=== PATIENT | male | born 1955 | race Caucasian/White ===

== ENCOUNTER 2021-02-08 12:21 | Outpatient (CLI) | payer MEDICARE, SELFPAY ==
[2021-02-08 12:58] LABS: Hemoglobin 11.3 g/dL (14.0-18.0); Mean Corpuscular HGB Conc 34.2 g/dl (32-36); Mean Corpuscular Volume 99.4 fl (80-100); Mean Platelet Volume 8.9 fl (7.4-10.4); Platelet Count Result 266 k/mm3 (150-375); Red Blood Count 3.32 M/mm3 (4.6-6.20); Red Cell Distribution Width 12.4 % (11.5-14.5); White Blood Count 4.5 K/mm3 (4.5-10.0)
[2021-02-08 13:05] LABS: Alanine Aminotransferase 21 U/L (4-50); Albumin Level 4.6 g/dL (3.5-5.1); Alkaline Phosphatase 92 U/L (38-126); Anion Gap 5 mmol/L (8-16); Aspartate Amino Transferase 29 U/L (17-59); Bilirubin,Total 0.5 mg/dL (0.2-1.3); Blood Urea Nitrogen 12 mg/dL (9-20); CRP < 0.5 mg/dL (<1.0); Calcium 9.3 mg/dL (8.4-10.2); Carbon Dioxide 27 mmol/L (22-30); Chloride 103 mmol/L (98-107); Estimated Glomerular Filt Rate > 60; Glucose 100 mg/dL (65-110); Potassium 4.4 mmol/L (3.4-5.0); Sodium 135 mmol/L (137-145)
[2021-02-08 15:28] LABS: Erythrocyte Sedimentation Rate 19 mm/hr (0-20)
== END 2021-02-08 12:22 | disposition home or self-care (01) ==
PROVIDERS: PCP Internal Medicine; Visit Provider Nurse Practitioner Family
DX: K51.90 Ulcerative colitis, unspecified, without complications (principal); K52.9 Noninfective gastroenteritis and colitis, unspecified
CPT/HCPCS: 36415; 80053; 85027; 85652; 86140; 87045; 87046; 87324; 87427

== ENCOUNTER 2021-05-09 01:11 | Day surgery (SDC) | payer MEDICARE, SELFPAY ==
[2021-04-22 11:15] VITALS: BMI 21.4
--- NOTE | 2021-04-25 14:37 | PC.NURSE ---
PT WAS INTERVIEWED BY Bobby TORO RN AND WAS GIVEN INSTRUCTIONS REGARDING A TELEPHONE AD TAKER AND TRANSPORTATION TO APPT. AND POST PROCEDURE. PT STILL INSISTED THAT HE WAS TAKING A MEDCAR AND WOULD NOT NEED ANYONE WITH HIM. HIS CHART WAS GIVEN TO ME AND I CALLED PT TO GO OVER THE REQUIREMENTS HERE AT [facility] REGARDING TRANSPORTATION HOME FROM PROCEDURE AFTER SEDATION. I WENT OVER THAT HE CAN TAKE A MED-CAR IF HE HAS SOMEONE ACCOMPANY HIM, THAT OUR POLICY IS THAT PATIENTS HAVE TO HAVE SOMEONE WITH THEM IN AN UBER, CAB, MED-CAR, BUS OR ANY OTHER PUBLIC TRANSPORTATION OR HAVE AN ACQUAINTANCE TRANSPORT THEM IN A PRIVATE VEHICLE. PT TRIED TO ARGUE THIS AND I EXPLAINED ONCE AGAIN THAT THIS IS THE POLICY OF [facility]. HE THEN STATED HE COULD NOT MEET THIS REQUIREMENT AND TO CANCEL HIS PROCEDURE. HIS PROCEDURE WAS CANCELED ON 04/24/2021, TODAY 04/25/21 THIS PATIENT CALLED BACK AND STATED HE WANTED HIS APPT. AND THAT HE WOULD BE TAKING THE MED-CAR AND A NEIGHBOR WOULD MAKE SURE HE WAS IN THE HOUSE. I AGAIN EXPLAINED TO THIS PATIENT THAT THE PERSON HAD TO ACCOMPANY HIM AND THAT MED-CAR WOULD ONLY DROP HIM OFF AND THEREFORE WE HAD TO HAVE SOMEONE TO RELEASE HIM TO THAT WAS HERE WITH HIM, HE STATED THAT NO ONE HAD TOLD HIM THAT, I AGAIN REITERATED THAT I TOLD HIM, Bobby TROO RN TOLD HIM AND THAT AMANDA IN DR. CARCAMO OFFICE TOLD HIM THIS. HE STATES HE WANTS TO KEEP HIS APPT AND WILL CALL ME WITH THE NAME OF WHO WILL BE HIS TELEPHONE AD TAKER. HE IS RESCHED. FOR 05/09/2021
--- NOTE | 2021-04-25 14:55 | PC.NURSE ---
I DID EXPLAIN TO PATIENT THAT IF HE COMES ON THE DAY OF HIS APPOINTMENT AND DOES NOT HAVE A QUALIFIED PYROTECHNICIAN ACCORDING TO OUR POLICY HE WILL BE CANCELED.
[2021-05-09 11:12] VITALS: BP 134/62; PULSE 80; RESP 16; TEMP 36.2; O2SAT 99; BMI 19.2
[2021-05-09] MEDS: LACTATED RINGERS 1,000 ML 150 ML IV CONT (11:27)
--- NOTE | 2021-05-09 11:37 | P.PNAN_ITS ---
Anes - Initial Pre Proc Eval Procedure: Operation Date: 05/09/21 12:30 Proposed Procedures p Colonoscopy - Jovon Fontanez MD Date/Time: 05/09/21 11:37 Surgeon: Jovon Fontanez MD Pre Op Diagnosis: ulcerative colitis Patient Data Age: 65 Gender: M Height: 1.78 m Weight: 60.8 kg Last Vital Signs Temp 36.2 C L 05/09/21 11:12 Pulse 80 05/09/21 11:12 Resp 16 05/09/21 11:12 BP 134/62 05/09/21 11:12 Pulse Ox 99 05/09/21 11:12 Allergies Allergy/AdvReac Type Severity Reaction Status Date / Time No Known Allergies Allergy Verified 05/09/21 11:09 Home Medications Medication Instructions Recorded Confirmed Type aspirin 81 mg tablet,delayed 81 mg PO DAILY 02/08/21 04/22/21 History release cilostazol 100 mg tablet 100 mg PO BID 02/08/21 04/22/21 History multivitamin 1 tablet PO DAILY 02/08/21 04/22/21 History Patient hx anesthesia problems: none Family hx anesthesia problems: none Results Review: All pre-operative results and documents have been reviewed as part of the pre-operative evaluation. [facility] Past Medical History Medical History Tobacco abuse Ulcerative colitis Social History Social History Social History: 1.5 PPD x 40+ years, 3-5 beers/day Smoking packs per day: 1 Smoking cigarettes per day: 20.0 Years smoked: 48 Smoking pack-years: 48.00 Smoking status: Current every day smoker Alcohol intake: current Drinks per week: 10 Living arrangements: alone Spiritual care concerns: No Anes - Eval Final PreProcedure Day of Procedure 05/09/21 11:37 Patient weight: normal Heart: regular rate and rhythm Lungs: clear to auscultation and normal air movement Airway: Mallampati scale class II Neurological: alert and oriented Last oral intake: >/= 8 hours ASA classification: III Emergent: no Anesthetic plan: proceed Anesthesia type and monitoring: general GIVS Results Review: All pre-operative results and documents have been reviewed as part of the pre-operative evaluation. Informed Consent: The patient's anesthetic plan and its attendant risks and benefits were discussed with the patient/family/POA. Questions were solicited and answers provided to the satisfaction of the patient/family/POA.
--- NOTE | 2021-05-09 12:06 | WPDGICN ---
Assessment and Plan Assessment and plan (1) Abnormal CT scan: Code(s): R93.89 - Abnormal findings on diagnostic imaging of other specified body structures Status: Acute Assessment and Plan: Patient with recent CT scan not immediately available for review, apparently suggest possible mass in the colon plan to evaluate with surveillance colonoscopy at this time. (2) Ulcerative colitis: Code(s): K51.90 - Ulcerative colitis, unspecified, without complications Status: Acute Assessment and Plan: Patient with a history of ulcerative colitis. Patient has self-medicated change his medication from Lialda brand of mesalamine to sulfasalazine. Currently 500mg tablets 8 a day. He has been altering the dose of this medication based on his symptoms and this may need to be adjusted. Plan is for colonoscopy to assess more thoroughly. Should he remain on sulfasalazine he will need folic acid added to his medical regime. GI Consult Note Consult date/time: 05/09/21 12:06 HPI: Bharat Hays is a 65 year old male Presents for screening colonoscopy. Patient has a history of ulcerative colitis. He has been on Lialda brand of mesalamine but began to notice diarrhea on this and in April change the medicine back to his previous medications of sulfasalazine. He states that he gradually increase the dose of the medicine so that he takes 500mg 8 tablets p.o. daily. He states more than that would cause stomach distress. He states his stools previously were diarrhea while on Lialda these have become more formed and brown in appearance recently. He still has control issues per he denies any significant bleeding. Denies any significant abdominal pain. He apparently was seen at [facility] in [place] and a CT scan was performed raising the question of a mass in the colon. For this reason he presents for colonoscopy today. Patient states he does not remember why he went to the emergency room her white of the CT scan was performed. Patient apparently had a previous colonoscopy several years ago confirming his ulcerative colitis. His family history is noncontributory. Review of Systems Review of Systems: All systems reviewed & are unremarkable except as noted in HPI and below PMFSH Past Medical History Medical History Tobacco abuse Ulcerative colitis Social History Social History Social History: 1.5 PPD x 40+ years, 3-5 beers/day Smoking packs per day: 1 Smoking cigarettes per day: 20.0 Years smoked: 48 Smoking pack-years: 48.00 Smoking status: Current every day smoker Alcohol intake: current Drinks per week: 10 Living arrangements: alone Spiritual care concerns: No Meds Home Medications and Allergies Home Medications Medication Instructions Recorded Confirmed Type aspirin 81 mg tablet,delayed 81 mg PO DAILY 02/08/21 04/22/21 History release cilostazol 100 mg tablet 100 mg PO BID 02/08/21 04/22/21 History multivitamin 1 tablet PO DAILY 02/08/21 04/22/21 History Allergies Allergy/AdvReac Type Severity Reaction Status Date / Time No Known Allergies Allergy Verified 05/09/21 11:09 Vital Signs Vital Signs - 24 hr 05/09/21 11:12 Temperature 97.1 F L Pulse Rate 80 Respiratory Rate 16 Blood Pressure 134/62 Pulse Oximetry 99 Exam Narrative: Physical exam reveals patient to be alert. Vital signs stable. HEENT exam is unremarkable. Patient is anicteric. Lungs are clear to auscultation and percussion. Heart is without murmur or extra sounds. Abdominal exam bowel sounds are present soft nontender with no organomegaly. Digital external rectal exam normal.
[2021-05-09 13:32] VITALS: BP 111/62; PULSE 70; RESP 22; O2SAT 93
[2021-05-09 13:42] VITALS: BP 125/74; PULSE 66; RESP 20; O2SAT 100
--- NOTE | 2021-05-09 13:44 | SUR.PHASEII ---
Provided Dr. Antoine office number.
[2021-05-09 13:52] VITALS: BP 147/78; PULSE 68; RESP 16; O2SAT 100
== END 2021-05-09 14:20 | disposition home or self-care (01) ==
PROVIDERS: PCP Internal Medicine; Visit Provider Internal Medicine Gastroenterology
PROC: 0DJD8ZZ Inspection of Lower Intestinal Tract, Via Natural or Artificial Opening Endoscopic (ICD-10-PCS; CPT 45378; principal; 2021-05-09 12:30)
DX: K63.89 Other specified diseases of intestine (principal); K64.8 Other hemorrhoids; Z98.0 Intestinal bypass and anastomosis status; Z90.49 Acquired absence of other specified parts of digestive tract; Z87.19 Personal history of other diseases of the digestive system; F17.210 Nicotine dependence, cigarettes, uncomplicated; Z79.82 Long term (current) use of aspirin
CPT/HCPCS: 45380; 88305; J2704; J7120

== ENCOUNTER 2024-01-21 07:00 | Outpatient (NON) | payer MEDICARE, SELFPAY | END 2024-01-21 07:01 | disposition home or self-care (01) | LOC: ANHLAB 01-22 09:51 | PROVIDERS: PCP Internal Medicine; Visit Provider Internal Medicine Gastroenterology | DX: K52.9 Noninfective gastroenteritis and colitis, unspecified (principal); D12.0 Benign neoplasm of cecum; D12.2 Benign neoplasm of ascending colon; D12.8 Benign neoplasm of rectum | CPT/HCPCS: 88305 ==

== ENCOUNTER 2024-01-21 08:32 | Day surgery (SDC) | payer MEDICARE, SELFPAY ==
[2023-12-16 14:12] VITALS: BMI 20.5
[2024-01-13 14:58] VITALS: BMI 20.2
[2024-01-21 10:58] VITALS: BP 134/73; PULSE 71; RESP 17; TEMP 36.6; O2SAT 99; BMI 19.1
--- NOTE | 2024-01-21 10:58 | WPDANESEPPF ---
Anes - Initial Pre Proc Eval Procedure: Operation Date: 01/21/24 11:30 Proposed Procedures p Colonoscopy - Jovon Fontanez MD Date/Time: 01/21/24 10:58 Surgeon: Jovon Fontanez MD Pre Op Diagnosis: Ulcerative colitis,unspec. Other specified disease Patient Data Age: 68 Gender: M Height: 1.78 m Weight: 63.8 kg Allergies Allergy/AdvReac Type Severity Reaction Status Date / Time No Known Allergies Allergy Verified 01/21/24 10:51 Home Medications Medication Instructions Recorded Confirmed Type cilostazol 100 mg tablet 100 mg PO BID 02/08/21 01/21/24 History multivitamin 1 tablet PO DAILY 02/08/21 01/21/24 History folic acid 1 mg tablet 1 mg PO DAILY 1 month #30 tabs 11/26/23 01/21/24 Rx atorvastatin 10 mg tablet 10 mg PO DAILY 01/13/24 01/21/24 History clopidogrel 75 mg tablet 75 mg PO DAILY 01/13/24 01/21/24 History sulfasalazine 500 mg tablet 2,000 mg PO DAILY 01/13/24 01/21/24 History Patient hx anesthesia problems: none Family hx anesthesia problems: none Results Review: All pre-operative results and documents have been reviewed as part of the pre-operative evaluation. [facility] Past Medical History Medical History Tobacco abuse Ulcerative colitis Surgical History Surgical History History of colon resection Social History Social History Social History: 1.5 PPD x 40+ years, 3-5 beers/day Smoking packs per day: 1 Smoking cigarettes per day: 20.0 Years smoked: 50 Smoking pack-years: 50.00 Smoking status: Current every day smoker Tobacco type: cigarettes Alcohol intake: current Drinks per week: 21 Alcohol use details: beer Substance use type: does not use Living arrangements: alone Spiritual care concerns: No Anes - Eval Final PreProcedure Day of Procedure 01/21/24 10:58 Patient weight: normal Heart: regular rate and rhythm Lungs: clear to auscultation Airway: Mallampati scale class II Neurological: alert and oriented Last oral intake: >/= 8 hours ASA classification: III Emergent: no Anesthetic plan: proceed Anesthesia type and monitoring: general GIVS and standard monitoring Results Review: All pre-operative results and documents have been reviewed as part of the pre-operative evaluation. Informed Consent: The patient's anesthetic plan and its attendant risks and benefits were discussed with the patient/family/POA. Questions were solicited and answers provided to the satisfaction of the patient/family/POA.
--- NOTE | 2024-01-21 11:13 | PM.HPGS ---
History of Present Illness History of Present Illness Consent: Risks, benefits, and alternatives have been discussed and questions answered. Patient agrees to proceed with procedure. Chief complaint: Ulcerative colitis Narrative: Bharat Hays is a 68 year old male presents for colonoscopy. Patient diagnosed with ulcerative colitis 6 or so years ago. Patient has a distant history of sigmoid colon resection for diverticulitis. Patient has had CT scans which revealed thickening of the descending colon and sigmoid colon. Colonoscopy performed in 2018 & 2020 confirmed diagnosis of ulcerative colitis. Patient initially treated with Lialda but was intolerant of this medication. He subsequently was placed on sulfasalazine. He was prescribed 1g p.o. b.i.d. but is only recently taken one gram p.o. q.a.m.. Patient states symptoms are well controlled. He no longer has diarrhea. He denies bleeding. His weight has remained stable. He has no blood in his stools. When last seen and evaluated his sigmoid colon was felt to be quite edematous. Biopsies were negative for malignancy. Surgical resection was discussed but patient has not pursued this. He presents today for follow-up colonoscopy. Review of Systems Review of Systems: All systems reviewed & are unremarkable except as noted in HPI and below PMFSH Past Medical History Medical History Tobacco abuse Ulcerative colitis Surgical History Surgical History History of colon resection Social History Social History Social History: 1.5 PPD x 40+ years, 3-5 beers/day Smoking packs per day: 1 Smoking cigarettes per day: 20.0 Years smoked: 50 Smoking pack-years: 50.00 Smoking status: Current every day smoker Tobacco type: cigarettes Alcohol intake: current Drinks per week: 21 Alcohol use details: beer Substance use type: does not use Living arrangements: alone Spiritual care concerns: No Meds Home Medications and Allergies Home Medications Medication Instructions Recorded Confirmed Type cilostazol 100 mg tablet 100 mg PO BID 02/08/21 01/21/24 History multivitamin 1 tablet PO DAILY 02/08/21 01/21/24 History folic acid 1 mg tablet 1 mg PO DAILY 1 month #30 tabs 11/26/23 01/21/24 Rx atorvastatin 10 mg tablet 10 mg PO DAILY 01/13/24 01/21/24 History clopidogrel 75 mg tablet 75 mg PO DAILY 01/13/24 01/21/24 History sulfasalazine 500 mg tablet 2,000 mg PO DAILY 01/13/24 01/21/24 History Allergies Allergy/AdvReac Type Severity Reaction Status Date / Time No Known Allergies Allergy Verified 01/21/24 10:51 Vital Signs Vital Signs - 24 hr 01/21/24 10:58 Temperature 97.8 F Pulse Rate 71 Respiratory Rate 17 Blood Pressure 134/73 Pulse Oximetry 99 Oxygen Delivery Room Air Exam Narrative: Physical exam reveals patient to be alert. Vital signs stable. HEENT exam is unremarkable. Patient is anicteric. Lungs are clear to auscultation and to percussion. Heart is without murmur or extra sounds. Abdomen bowel sounds are present soft nontender with no organomegaly. Digital external rectal exam normal. Assessment and Plan Assessment and plan (1) Ulcerative colitis: Code(s): K51.90 - Ulcerative colitis, unspecified, without complications Status: Acute Assessment and Plan: Patient with ulcerative colitis. Appears to be in clinical remission. He has a history of abnormal CT scan suggesting thickening in the sigmoid colon. Previous biopsies were unremarkable. Follow-up colonoscopy at this time. Patient taking sulfasalazine 1g p.o. daily. Further recommendations may be given after endoscopy. (2) History of colon resection: Code(s): Z90.49 - Acquired absence of other specified parts of digestive tract Status: Acute Assessment and Plan:
[2024-01-21] MEDS: LACTATED RINGERS 1,000 ML 150 ML IV CONT (11:19)
[2024-01-21 11:55] VITALS: BP 105/45; PULSE 75; RESP 16; O2SAT 98
--- NOTE | 2024-01-21 12:03 | WPDANESPN ---
Anes - Prog Note Post-Op Date/Time: 01/21/24 12:03 Cardiovascular status: normal Respiratory status: normal Airway patency: baseline Mental status: baseline Post-Op hydration status: normal Vital Signs: Last Vital Signs Temp 36.6 C 01/21/24 10:58 Pulse 71 01/21/24 10:58 Resp 17 01/21/24 10:58 BP 134/73 01/21/24 10:58 Pulse Ox 99 01/21/24 10:58 O2 Del Method Room Air 01/21/24 10:58 Pain Score (VAS): 0/10 I/O: Intake & Output 01/20/24 01/21/24 01/21/24 23:59 07:59 15:59 Intake Total 800 Balance 800 Patient Feedback: Patient satisfied with anesthetic care.
[2024-01-21 12:05] VITALS: BP 109/47; PULSE 72; RESP 18; O2SAT 97
[2024-01-21 12:15] VITALS: BP 123/63; PULSE 64; RESP 20; O2SAT 99
--- NOTE | 2024-01-21 13:00 | SUR.PHASEII ---
[address] CANDELARIA TO ASK WHEN PATIENT CAN START BACK ON HIS BLOOD THINNERS. STATED TO HAVE PT RESUME ON 01/23/2024. PT INSTRUCTED AND WRITTEN ON D/C ORDERS TO RESUME CILOSTAZOL AND CLOPIDOGREL ON 01/23/2024. PT VERBALIZED UNDERSTANDING.
--- NOTE | 2024-01-21 13:04 | SUR.PHASEII ---
1240 PT SITTING UP IN CHAIR WAITING FOR JEWEL RIDE
== END 2024-01-21 13:00 | disposition home or self-care (01) ==
PROVIDERS: PCP Internal Medicine; Visit Provider Internal Medicine Gastroenterology
PROC: 0DJD8ZZ Inspection of Lower Intestinal Tract, Via Natural or Artificial Opening Endoscopic (ICD-10-PCS; CPT 45378; principal; 2024-01-21 11:30)
DX: Z87.19 Personal history of other diseases of the digestive system (principal); D12.0 Benign neoplasm of cecum; D12.2 Benign neoplasm of ascending colon; D12.8 Benign neoplasm of rectum; K63.89 Other specified diseases of intestine; K64.8 Other hemorrhoids; K51.30 Ulcerative (chronic) rectosigmoiditis without complications
CPT/HCPCS: 45385; 45380

== ENCOUNTER 2025-02-23 15:46 | Outpatient (CLI) | payer MEDICARE, SELFPAY ==
--- OUTSIDE RECORDS SUMMARY | 2025-02-23 15:00 | XMS_ITS | Encounter Summary ---
Author Organization [facility] Address [address] [place] [address] Care Team Providers Care Assembler Molded Frames Name Role Phone Adeil Cabrales MD Primary Care Provider Reason for Visit * Reason Comments Establish Care Encounter Details Date Type Department Care Team (Late st Contact Info) Description 02/23/2025 3:00 PM CDT Office Visit [facility] Oncology and Hematology - Gen [address] [facility] [address] [place] [address] Cuong Hobson MD [address] [facility] [address] [place] [address] Chronic anemia (Primary Dx) Social History Tobacco Use Types Packs/Day Years Used Date Smoking Tobacco: Every Day Cigarettes 2 56 Started: 02/23/1969 Smokeless Tobacco: Never Alcohol Use Standard Drinks/Week Comments Yes 0 (1 standard drink = 0.6 oz pur e alcohol) Everyday Sex and Gender Information Value Date Recorded Sex Assigned at Not on file Legal Sex Male 9:31 AM CDT Gender Identity Not on file Sexual Orientation Not on file documented as of this encounter Last Filed Vital Signs Vital Sign Reading Time Taken Comments Blood Pressure 114/70 02/23/2025 3:07 PM CDT Pulse 67 02/23/2025 3:07 PM CDT Temperature 36.9 C (98.5 F) 02/23/2025 3:07 PM CDT Respiratory Rate 15 02/23/2025 3:07 PM CDT Oxygen Saturation 97% 02/23/2025 3:07 PM CDT Inhaled Oxygen Concentration - - Weight 60.5 kg (133 lb 6.4 oz) 02/23/2025 3:07 P M CDT Height 175.3 cm (5' 9) 02/23/2025 3:07 PM CDT Body Mass Index 19.7 02/23/2025 3:07 PM CDT documented in this encounter Progress Notes * Cuong Hobson MD - 02/23/2025 3:44 PM CDT Hematology-oncology consult Note Requesting Physician Adiel Cabrales MD Primary Care Physician Adiel Cabrales MD Problem list There is no problem list on file for this patient. Previous TREATMENT ? Measurable Disease ? Reason for Visit Bharat Hays is a 69 y.o. male who was referred for consultation for macrocytic anemia. History of present illness This is a pleasant 69-year-old male with history of peripheral vascular disease currentlyon Pletal and Plavix along with Lipitor for hyperlipidemia. Patient has a history of smoking half pack per day for more than 50 years duration. He also drink alcohol 1-2 beers a day but used to drink heavier more than 10 years ago. Patient has a history of small bowel obstruction and had intestinalresection done in 2014. He denies being a vegetarian. Patient has a history of nosebleed but now resolved. Her last colonoscopy was in summer of last year and came back normal. He is taking multivitamin. Denies any history of liver disease and thyroid disease. He only eats 1 meal a day since his int estinal resection 10 years ago. He has lost almost 25 pound weight in 1 year. Labs from August 2024 showed hemoglobin of 10.6 with MCV of 108. He has no other new complaints. Past Medical History No past medical history on file. Hyperlipidemia Peripheral vascular disease Surgical History No past surgical history on file. Intestinal resection for small bowel obstruction in 2014 Medications Current Outpatient Medications Medication Sig Dispense Refill cilostazoL (PLETAL) 100 mg Tablet Take 100 mg by mouth 2 times daily. clopidogreL (PLAVIX) 75 mg Tablet Take 75 mg by mouth daily. atorvastatin (LIPITOR) 10 mg tablet Take 10 mg by mouth daily. multivitamin (DAILY-TOOTIE) tablet Take 1 Tablet by mouth daily. No current facility-administered medications for this visit. Allergies No Known Allergies Immunizations: There is no immunization history on file for this patient. Family History Family History Problem Relation Name Age of Onset No Known Problems Father No Known Problems Mother No Known Problems Sister Social History Social History Tobacco Use Smoking status: Every Day Current packs/day: 0.50 Average packs/day: 2.0 packs/day for 56.0 years (110.5 ttl pk-yrs) Types: Cigarettes Start date: 02/23/1969 Smokeless tobacco: Never Substance Use Topics Alcohol use: Yes Comment: Everyday Review of Systems Constitutional: Patient did not mention fever; no night sweats; no anorexia;complain of mild tiredness and fatigue, 25 pound weight loss in 10 years NEENT: Patient did not mention headache; no change in vision; no change in hearing; no sore throat;no dysphagia Respiratory: Patient did not mention shortness of breath; no pleuritic chest pain; no cough; no hemoptysis Cardiac: Patient did not mention cardiac-like chest pain; no palpitations; no orthopnea; no PND; noDOE GI: Patient did not mention abdominal pain; no nausea; no vomiting; no diarrhea; no hematochezia; no melena : Patient did not mention dysuria; no frequency; no hesitancy; no hematuria 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 No signs of infection or swelling. Eyes: PERRL, conjunctiva normal HEENT: Atraumatic, external ears normal, nose normal, oropharynx moist, no pharyngeal exudates. no sinus tenderness Neck- normal range of motion, no tenderness, supple Respiratory: No respiratory distress, normal breath sounds, no rales, no wheezing Cardiovascular: Normal rate, normal rhythm, no murmurs, no gallops, no rubs GI: Soft, nondistended, normal bowel sounds, nontender, no splenomegaly, no hepatomegaly, no mass, no rebound, no guarding : No costovertebral angle tenderness Musculoskeletal: No edema, no tenderness, no deformities. Back- no tenderness Integument: Well hydrated, no rash, Digits and nails inspection normal Lymphatic: No lymphadenopathy noted Neurologic: Alert & oriented x 3, CN 2-12 normal, normal motor function, normal sensory function, no focal deficits noted Psychiatric: Speech and behavior appropriate ? labs No results found for this or any previous visit (from the past 24 hours). Labs from August 2024 showed WBC 5.2 hemoglobin 10.6 MCV 108 platelet 279,000 Pathology ? Imaging & Other Studies Performance Status? Assessment / Plan: ? Macrocytic anemia. Patient is a 69-year-old male with history of hyperlipidemia, intestinal resection due to obstruction in 2014 and peripheral vascular disease currently on Plavix and Flagyl. He drinks 1-2 beer a day but used to drink heavily more than 10 years ago. He also smoked half pack per day for more than 50 years duration. He eats only 1 meal a day since the intestinal surgery and lost more than 25 pound weight. His last colonoscopy was last summer. I have discussed the differential diagnosis of macrocytic anemia that includes liver disease. Due to alcohol consumption, malnutrition with previous intestinal surgery with vitamin B12 and folic acid deficiency, thyroid disorder and possibility of bone marrow disorder like myelodysplastic syndrome. I will order the workup that will include CBC with differential, CMP, methylmalonic acid level, vitamin B12 and folic acid level iron studies and CBC will along with CMP. No need for bone marrow biopsy testing at this time. I have recommended abstinence from drinking. Currently is taking multivitamin. I have answered all thequestions to patient satisfaction. Follow-up in 2 weeks. Peripheral vascular disease. Patient is on Plavix and Pletal. Denies any bleeding. Hyperlipidemia. He is on Lipitor. Thank you very much for allowing me to participate in Bharat Hays's evaluation and management. Please feel free to contact if I can be of any further assistance in your patient???s care requiring hematology or oncology evaluation. Sincerely, ? ? Cuong Hobson M.D. cell TOBACCO COUNSELING He is not a tobacco/nicotine user. Cuong Hobson MD ,02/23/2025 3:44 PM ? Total time spent 60 minutes, two third of the total time spent counseling patient [id number]. CC:?Adiel Cabrales MD documented in this encounter Plan of Treatment Upcoming Encounters Date Type Department Care Team (Late st Contact Info) Description 03/21/2025 11:45 AM CDT Office Visit [facility] Oncology and Hematology - Gen [address] [facility] [address] [place] [address] Cuong Hobson MD [address] [facility] [address] [place] [address] Scheduled Orders Name Type Priority Associated Diagnoses Orde r Schedule CBC WITH DIFFERENTIAL Lab Stat Chronic anemia Expected: 02/23/2025, Expires: 02/23/2026 COMPREHENSIVE METABOLIC PANEL Lab Stat Chronic anemia Expected: 02/23/2025, Expires: 02/23/2026 FERRITIN Lab Routine Chronic anemia Expected: 02/23/2025, Expires: 02/23/2026 IRON, TIBC, AND PERCENT SATURATION Lab Routine Chronic anemia Expected: 02/23/2025, Expires: 02/23/2026 METHYLMALONIC ACID Lab Routine Chronic anemia Expected: 02/23/2025, Expires: 02/23/2026 TRANSFERRIN RECEPTOR TFR SOLUBLE Lab Routine Chronic anemia Expected: 02/23/2025, Expires: 02/23/2026 TSH Lab Routine Chronic anemia Expected: 02/23/2025, Expires: 02/23/2026 VITAMIN B12 AND FOLATE Lab Routine Chronic anemia Expected: 02/23/2025, Expires: 02/23/2026 documented as of this encounter Visit Diagnoses Diagnosis Chronic anemia- Primary Anemia, unspecified documented in this encounter Care Teams Assembler Molded Frames Relationship Specialty Start Date End Date Adiel Cabrales MD [address] [place] [address] PCP - General Internal Medicine 12/14/24 documented as of this encounter
--- OUTSIDE RECORDS SUMMARY | 2025-02-23 15:51 | XMS_ITS | Clinical Summary ---
Author Organization [facility] Nicole oconnell Carmela Address [address] [place] [address] Care Team Providers Care Architectural Administrative Assistant Name Role Phone Adiel Cabrales MD Primary Care Provider [phone] Allergies No known active allergies Medications cilostazoL (PLETAL) 100 mg Tablet Take 100 mg by mouth 2 times daily. 07/12/2024 Active clopidogreL (PLAVIX) 75 mg Tablet Take 75 mg by mouth daily. 07/12/2024 Active atorvastatin (LIPITOR) 10 mg tablet Take 10 mg by mouth daily. 02/23/2023 Active multivitamin (DAILY-TOOTIE) tablet Take 1 Tablet by mouth daily. Active Active Problems No known active problems Encounters Date Type Department Care Team Description 02/23/2025 3:00 PM CDT Office Visit [facility] Oncology and Hematology - Gen [address] [address] Coung Hobson MD Chronic anemia (Primary Dx) from Last 3 Months Family History Medical History Relation Name Comments No Known Problems Father No Known Problems Mother No Known Problems Sister Relation Name Status Comments Father Mother Sister Alive Social History Tobacco Use Types Packs/Day Years [...] on file Sexual Orientation Not on file Last Filed Vital Signs Vital Sign Reading [...] Mass Index 19.7 02/23/2025 3:07 PM CDT Plan of Treatment Upcoming Encounters Date Type Department Care Team (Late st Contact Info) Description 03/21/2025 11:45 AM CDT Office Visit [facility] Oncology and Hematology [facility] [address] [facility] [address] [place] [address] Cuong Hobson MD [address] [facility] [employer] [address] [place] [address] Health Maintenance Due Date Last Done Comments DTAP/TDAP/TD VACCINES (1 - Tdap) 1972 Traditional Medicare (ACO) Annual Wellness Visit 05/30 FIT-DNA Q 3 years 1998 FIT/FOBT Q 1 year 1998 Flex Sig/CT Colonography Q 5 years 1998 PNEUMOCOCCAL VACCINE 50+ YEARS (1 of 1 - PCV) 05/30/20 03 ZOSTER VACCINE (1 of 2) 2003 INFLUENZA VACCINE (#1) 2025 04/09/2020 RSV VACCINE (60+ or ) (1 - 1-dose 75+ series) 2028 COLORECTAL SCREENING 05/09/2031 05/09/2021 Colorectal Cancer Screening 05/09/2031 Insurance MEDICARE PART A AND B [employer] SUPP Care Teams Architectural Administrative Assistant Relationship Specialty Start Date End Date Adiel aCbrales MD [address] [place] [id number] PCP - General Internal Medicine 12/14/24
--- OUTSIDE RECORDS SUMMARY | 2025-02-23 15:51 | XMS_ITS | Clinical Summary ---
Author Organization [facility] Address [address] [place] [address] Care Team Providers Care Process Development Manager Name Role Phone Adiel Cabrales MD Primary Care Provider [phone] Aris Terry MD Unavailable [phone] Allergies No known active allergies Medications traMADol (ULTRAM) 50 mg tablet take 1 tablet by oral route every 6 hours as needed 0 0 5 Active mesalamine (LIALDA) 1.2 gram EC tablet 1 Active aspirin 81 mg enteric coated tablet Take 1 tablet (81 mg total) by mouth daily Active sulfaSALAzine (AZULFIDINE) 500 mg tablet Take 1 tablet (500 mg total) by mouth 4 (four) times a day Active multivitamin capsule Take 1 capsule by mouth daily Active HYDROcodone-sweta taminophen ([place]) 5-325 mg per tablet Take 1 tablet by mouth every 4 (four) hours as needed for pain 5 tablet 3 Active Additional Information Patient not taking.Reported on 2024 senna-docusate (PERICOLACE) 8.6-50 mg Take 2 tablets by mouth daily 30 tablet 3 Active atorvastatin (LIPITOR) 10 mg tablet Take 1 tablet (10 mg total) by mouth daily 3 Active cilostazoL (PLETAL) 100 mg tablet TAKE 1 TABLET(100 MG) BY MOUTH TWICE DAILY 180 tablet 3 5 Active clopidogreL (PLAVIX) 75 mg tablet TAKE 1 TABLET(75 MG) BY MOUTH DAILY 90 tablet 3 5 Active Active Problems Problem Noted Date Diagnosed Date Diverticulitis 12/10/2022 Assessment & Plan (12/10/2022 9:25 AM CDT): Hx of diverticulitis c/b abscess now s/p ex lap sigmoid resection and jejunum 06/2015 -cont home mesalamine & sulfasalazine PAD (peripheral artery disease) 12/10/2022 Atherosclerosis of kashia ar leroy of both lower extremities with intermittent claudication 11/17/2022 Assessment & Plan (12/10/2022 1:30 PM CDT): Patient with BLE atherosclerosis and claudication. He has been managed conservatively in the past and now reports worsening of claudication distance affecting both lower extremities. His NING from 10/30/2022 showed 0.77 on the right side and 0.63 on the left side with monophasic waveforms in inflow on the right side and high- grade stenosis of proximal right SFA. He is on aspirin and Pletal. He presents for scheduled RLE angio -> R EIA stent and R SFA atherectomy + DCB, Admitted for 23hour obs - Plavix load + aspirin + Pletal - Q4 NV checks - ADAT - bedrest x2hrs - cont ASA - pain control - PT/OT in AM Crohn's disease of both small and large intestin e 05/08/2015 Stricture of colon 04/17/2015 Surgical History Surgery Date Site/Laterality Comments OTHER SURGICAL HISTORY Excision of a tumor by jaw OTHER SURGICAL HISTORY 2014 Laparoscopic-assisted sigmoid resection with en block resection of sigmoid colon and small bowel, Complete splenic flexure mobilization Medical History Medical History Date Comments Peripheral vascular disease Family History Medical History Relation Name Comments No Known Problems Father Dementia Mother Relation Name Status Comments Father Mother Social History Tobacco Use Types Packs/Day Years Used Date Smoking Tobacco: Every Day Cigarettes Smokeless Tobacco: Never Tobacco Cessation:Ready to Q uit: Not Asked; Counseling Given: Not Answered Alcohol Use Standard Drinks/Week Comments No 0 (1 standard drink = 0.6 oz pur e alcohol) AUDIT-C Answer Date Recorded Q1: How often do you have a drink containing alcohol? 4 or more times a week 12/10/2022 Q2: How many drinks containi ng alcohol do you have on a typical day when you are drinking? 1 or 2 Q3: How often do you have si x or more drinks on one occasion? Never 12/10/2022 Personal Safety Answer Date Recorded Have you ever been in or are you currently in a harmful physical or emotional relationship or is someone making you feel afraid or unsafe? 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 Gender Identity Not on file Sexual Orientation Not on file Obstetrics History Last Filed Vital Signs Vital Sign Reading Time Taken Comments Blood Pressure 137/79 2024 11:25 AM SQL DATABASE DEVELOPER Pulse 92 2024 11:25 AM SQL DATABASE DEVELOPER Temperature 36.5 C (97.7 F) 2024 11:25 AM SQL DATABASE DEVELOPER Respiratory Rate 14 12/11/2022 7:36 AM CDT Oxygen Saturation 94% 12/11/2022 7:36 AM CDT Inhaled Oxygen Concentration - - Weight 61.6 kg (135 lb 12.8 oz) 024 11:25 AM SQL DATABASE DEVELOPER Height 172.7 cm (5' 8) 2024 11:2 5 AM SQL DATABASE DEVELOPER Body Mass Index 20.65 2024 11:25 AM SQL DATABASE DEVELOPER Plan of Treatment Health Maintenance Due Date Last Done Comments Colon Cancer Screening-Colonoscopy 1955 Depression Screening 1955 Hepatitis C Screening 1953 Hepatitis B Screening 1971 Pneumococcal vaccine 65+ (1 of 2 - PCV) 1972 Zoster Vaccine (1 of 2) 2003 DTaP/Tdap/Td Vaccine (1 - Tdap) 03/03/2014 4 Well Visit 65+ 2018 Fall Risk Assessment 12/12/2023 12/11/2022 Influenza Vaccine (#1) 2025 Abdominal Aortic Aneurysm (AAA) Screen Completed , 05/15/2015 Medical Devices Implanted Type Area Business Manager [employer] Device Identifier Shelf Expiration Date Model / Serial / Lot [place] [employer] Starclose Se 6fr Clip Vascular Device Closure Nitinol Sterile 69541-34 - [id number] - [id number] Implanted:Qty: 1 on 12/10/2022 by Aris Terry MD at [facility] Collagen [employer] 02/02/2023 [id number] / [id number] / [id number] [employer] Visi-Pro 10mm 27mm 80cm Radiopaque Balloon Expand Radial Strength - [id number] - [id number] Implanted:Qty: 1 on 12/10/2022 by Aris Terry MD at [facility] Stent [employer] 07/22/2025 [id number] / [id number] / [id number] Procedures Procedure Name Priority Date/Time Associated Diagnosis Comments CTA ABDOMINAL AORTA AND BILATERAL ILIOFEMORAL RUNOFF Schedule Routine, Read Routine (OP Routine) 11/17/2022 4:15 PM CDT Atherosclerosis of kashia artery of both lower extremities with intermittent claudication from Last 3 Months or Most Recently Relevant to Health Maintenance Results * CTA Abdominal Aorta And Bilateral Iliofemoral Runoff (11/17/2022 4:15 PM CDT) Anatomical Region Laterality Modality Body Bilateral Computed Tomogra phy 11/17/2022 5:14 PM CDT Impressions 11/17/2022 5:14 PM CDT 1. ATHEROSCLEROTIC CHANGES IN THE ABDOMINAL AORTA WITHOUT ANEURYSM, DISSECTION OR STENOSIS. 2. BRANCHES OF THE ABDOMINAL AORTA ARE WIDELY PATENT. 3. SIGNIFICANT STENOSIS AT THE ORIGIN OF THE RIGHT EXTERNAL ILIAC ARTERY. 4. THE COMMON ILIAC, EXTERNAL ILIAC AND COMMON FEMORAL ARTERIES ARE OTHERWISE WIDELY PATENT BILATERALLY. 5. SIGNIFICANT STENOSIS IN THE PROXIMAL RIGHT SUPERFICIAL FEMORAL ARTERY. 6. THE SUPERFICIAL FEMORAL AND POPLITEAL ARTERIES ARE OTHERWISE WIDELY PATENT BILATERALLY. 7. SINGLE VESSEL RUNOFF IN THE RIGHT CALF WITH A PATENT ANTERIOR TIBIAL ARTERY. 8. THERE ARE NO PATENT RUNOFF ARTERIES IN THE LEFT CALF. Electronically signed by: Dayday Murray M.D. Narrative 11/17/2022 5:14 PM CDT EXAMINATION: CTA ABDOMINAL AORTA AND BILATERAL ILIOFEMORAL RUNOFF DATE: 11/17/2022 2:00 PM HISTORY: Peripheral arterial disease. Intermittent claudication. COMPARISON: CT of the abdomen and pelvis from 05/15/2015. TECHNIQUE: Transaxial computed tomographic images of the abdomen, pelvis, and lower extremities were obtained after the administration of 122 mL Optiray 350 intravenously using an AIF protocol. Multiplanar coronal and sagittal images were reformatted. 3D volumetric analysis with VRT and MIP images were created on a dedicated workstation. FINDINGS: Vascular Findings: There are atherosclerotic changes in the abdominal aorta. No evidence of an aneurysm or dissection. Branches of the abdominal aorta are widely patent. There is a significant stenosis at the origin of the right external iliac artery. The iliac and common femoral arteries are otherwise widely patent. Right Lower Extremity: There is a significant stenosis just beyond the origin of the superficial femoral artery. No other significant stenosis is seen in the superficial femoral or popliteal arteries. There is single vessel runoff in the calf with a patent anterior tibial artery. Left Lower Extremity: The superficial femoral and popliteal arteries are widely patent. There are no patent runoff arteries in the calf. Collaterals reconstitute the anterior tibial artery in the mid calf. Nonvascular Findings: The liver, gallbladder, spleen, pancreas, adrenal glands, and kidneys appear normal within the limits of this angiographic examination. No evidence of bowel obstruction. No inflammatory lesion is seen. The urinary bladder is normal. Procedure Note Dayday Murray MD - 11/17/2022 EXAMINATION: CTA ABDOMINAL AORTA AND BILATERAL ILIOFEMORAL RUNOFF DATE: 11/17/2022 2:00 PM HISTORY: Peripheral arterial disease. Intermittent claudication. COMPARISON: CT of the abdomen and pelvis from 05/15/2015. TECHNIQUE: Transaxial computed tomographic images of the abdomen, pelvis, and lower extremities were obtained after the administration of 122 mL Optiray 350 intravenously using an AIF protocol. Multiplanar coronal and sagittal images were reformatted. 3D volumetric analysis with VRT and MIP images were created on a dedicated workstation. FINDINGS: Vascular Findings: There are atherosclerotic changes in the abdominal aorta. No evidence of an aneurysm or dissection. Branches of the abdominal aorta are widely patent. There is a significant stenosis at the origin of the right external iliac artery. The iliac and common femoral arteries are otherwise widely patent. Right Lower Extremity: There is a significant stenosis just beyond the origin of the superficial femoral artery. No other significant stenosis is seen in the superficial femoral or popliteal arteries. There is single vessel runoff in the calf with a patent anterior tibial artery. Left Lower Extremity: The superficial femoral and popliteal arteries are widely patent. There are no patent runoff arteries in the calf. Collaterals reconstitute the anterior tibial artery in the mid calf. Nonvascular Findings: The liver, gallbladder, spleen, pancreas, adrenal glands, and kidneys appear normal within the limits of this angiographic examination. No evidence of bowel obstruction. No inflammatory lesion is seen. The urinary bladder is normal. IMPRESSION: 1. ATHEROSCLEROTIC CHANGES IN THE ABDOMINAL AORTA WITHOUT ANEURYSM, DISSECTION OR STENOSIS. 2. BRANCHES OF THE ABDOMINAL AORTA ARE WIDELY PATENT. 3. SIGNIFICANT STENOSIS AT THE ORIGIN OF THE RIGHT EXTERNAL ILIAC ARTERY. 4. THE COMMON ILIAC, EXTERNAL ILIAC AND COMMON FEMORAL ARTERIES ARE OTHERWISE WIDELY PATENT BILATERALLY. 5. SIGNIFICANT STENOSIS IN THE PROXIMAL RIGHT SUPERFICIAL FEMORAL ARTERY. 6. THE SUPERFICIAL FEMORAL AND POPLITEAL ARTERIES ARE OTHERWISE WIDELY PATENT BILATERALLY. 7. SINGLE VESSEL RUNOFF IN THE RIGHT CALF WITH A PATENT ANTERIOR TIBIAL ARTERY. 8. THERE ARE NO PATENT RUNOFF ARTERIES IN THE LEFT CALF. Electronically signed by: Dayday Murray M.D. Aris Terry MD IMG CT PROCEDURES Final Resu lt from Last 3 Months or Most Recently Relevant to Health Maintenance Insurance MEDICARE [facility] [employer] MEDICARE [employer] Advance Directives For more information, please contact: [phone] * Full Code (Latest Code Status on File) Date Activated Date Inactivated Comments 12/10/2022 1:52 PM 12/11/2022 2:19 PM Care Teams Process Development Manager Relationship Specialty Start Date End Date Adiel Cabrales MD PCP - General 11/16/16 [place] [id number] [address] [facility] [address] [place] [address] Consulting Physician Vascular Surgery 12/11/22
[2025-02-23 16:00] LABS: Hematocrit 40.8 % (42.0-52.0); Hemoglobin 14.0 g/dL (14.0-18.0); Immature Granulocyte Percent A 0.4 % (0-0.5); Lymphocytes Absolute Auto 1.06 K/mm3 (0.9-3.2); Mean Corpuscular HGB Conc 34.3 g/dl (32-36); Mean Corpuscular Hemoglobin 34.7 pg (26-34); Mean Corpuscular Volume 101.2 fl (80-100); Nucleated Red Blood Cells Absolute Auto 0.000 K/mm3 (0.0-0.012); Nucleated Red Blood Cells Perc 0.0 % (0.0-0.2); Platelet Count Result 217 k/mm3 (150-375); Red Blood Count 4.03 M/mm3 (4.6-6.20); White Blood Count 5.4 K/mm3 (4.5-10.0)
[2025-02-23 16:39] LABS: Alanine Aminotransferase 22 U/L (6-50); Albumin Level 4.9 g/dL (3.5-5.1); Alkaline Phosphatase 72 U/L (38-126); Anion Gap 6 mmol/L (4-12); Aspartate Amino Transferase 32 U/L (17-59); Bilirubin,Total 0.7 mg/dL (0.2-1.3); Blood Urea Nitrogen 14 mg/dL (9-20); Calcium 9.6 mg/dL (8.4-10.2); Carbon Dioxide 30 mmol/L (22-30); Chloride 100 mmol/L (98-107); Estimated Glomerular Filt Rate > 60; Glucose 89 mg/dL (65-110); Potassium 4.1 mmol/L (3.4-5.0); Sodium 136 mmol/L (137-145); Total Protein 8.0 g/dL (6.3-8.2)
[2025-02-23 16:51] LABS: Iron 107 ug/dL (49-181)
[2025-02-23 17:01] LABS: Percent Iron Saturation 28 % (20-50)
[2025-02-23 17:16] LABS: Thyroid Stimulating Hormone 1.570 uIU/mL (0.465-4.680)
[2025-02-23 17:32] LABS: Ferritin 27.80 ng/mL (11.1-264)
[2025-02-23 17:51] LABS: Vitamin B12 940.0 pg/mL (239-931)
== END 2025-02-23 15:47 | disposition home or self-care (01) ==
PROVIDERS: PCP Internal Medicine; Visit Provider Internal Medicine Hematology & Oncology
DX: D64.9 Anemia, unspecified (principal)
CPT/HCPCS: 36415; 80053; 82607; 82728; 82746; 83540; 83550; 83921; 84238; 84443; 85025

== ENCOUNTER 2025-04-19 00:36 | Day surgery (SDC) | payer MEDICARE, SELFPAY ==
[2025-04-11 09:36] VITALS: BMI 21.3
--- NOTE | 2025-04-11 10:10 | PC.NURSE ---
Spoke with PATIENT regarding medication PLAVIX AND CILOSTAZOL. PATIENT verbalizes understanding that the last dose is to be taken on 04/11/2025 and will begin an ASPIRIN 81MG DAILY 04/12/[address] Terry and the Endoscopist will instruct them when to restart after the procedure.
[2025-04-19 08:59] VITALS: BP 148/67; PULSE 66; RESP 18; TEMP 36.5; O2SAT 98
[2025-04-19] MEDS: LACTATED RINGERS 1,000 ML 150 ML IV CONT (09:11)
--- NOTE | 2025-04-19 10:08 | P.PNAN_ITS ---
Anes - Initial Pre Proc Eval Procedure: Operation Date: 04/19/25 10:00 Proposed Procedures p Screening Colonoscopy - Marques Stover MD Date/Time: 04/19/25 10:08 Surgeon: Marques Stover MD Pre Op Diagnosis: Personal history of colon polyps, unspecified Patient Data Age: 69 Gender: M Height: 1.73 m Weight: 59.1 kg Last Vital Signs Temp 36.5 C 04/19/25 08:59 Pulse 66 04/19/25 08:59 Resp 18 04/19/25 08:59 BP 148/67 H 04/19/25 08:59 Pulse Ox 98 04/19/25 08:59 O2 Del Method Room Air 04/19/25 08:59 Allergies Allergy/AdvReac Type Severity Reaction Status Date / Time No Known Allergies Allergy Verified 04/19/25 08:55 Home Medications ?Medication ?Instructions ?Recorded ?Confirmed ?Type cilostazol 100 mg tablet 100 mg PO BID 02/08/2104/19 History multivitamin 1 tablet PO DAILY 02/08/21 1 History atorvastatin 10 mg tablet 10 mg PO DAILY 01/13/2404/05 History clopidogrel 75 mg tablet 75 mg PO DAILY 01/13/2404/05 History sulfasalazine 500 mg tablet 2,000 mg PO DAILY 01/13/24 04/19/25 History aspirin 81 mg tablet 81 mg PO DAILY 04/11/2504/05 History Patient hx anesthesia problems: none Family hx anesthesia problems: none Results Review: All pre-operative results and documents have been reviewed as part of the pre- operative evaluation. FOR[facility]LY [facility], [facility] Past Medical History Medical History Ulcerative colitis Tobacco abuse Surgical History Surgical History History of colon resection Social History Social History Social History: 1.5 PPD x 40+ years, 3-5 beers/day Smoking packs per day: 1 Smoking cigarettes per day: 20.0 Years smoked: 50 Smoking pack-years: 50.00 Smoking status: Current every day smoker Tobacco type: cigarettes Alcohol intake: current Drinks per week: 21 Alcohol use details: beer Substance use type: does not use Living arrangements: alone Spiritual care concerns: No Anes - Eval Final PreProcedure Day of Procedure 04/19/25 10:08 Patient weight: thin Heart: regular rate and rhythm Lungs: clear to auscultation Airway: Mallampati scale class II Neurological: alert and oriented Last oral intake: >/= 8 hours ASA classification: III Emergent: no Anesthetic plan: proceed Anesthesia type and monitoring: general GIVS and standard monitoring Results Review: All pre-operative results and documents have been reviewed as part of the pre- operative evaluation. Informed Consent: The patient's anesthetic plan and its attendant risks and benefits were discussed with the patient/family/POA. Questions were solicited and answers provided to the satisfaction of the patient/family/POA.
--- NOTE | 2025-04-19 10:25 | PM.IMHP ---
H&P: HPI History of Present Illness Date/Time: 04/19/25 10:25 Chief Complaint: History of colon polyps Narrative: The patient has a history of colonic polyps, the last colonoscopy was 3 years ago. In addition, the patient had a partial colonic resection for an obstructive process of unclear etiology. Review of Systems Review of Systems: All systems reviewed & are unremarkable except as noted in HPI and below PMFSH Past Medical History Medical History Ulcerative colitis Tobacco abuse Surgical History Surgical History History of colon resection Social History Social History Social History: 1.5 PPD x 40+ years, 3-5 beers/day Smoking packs per day: 1 Smoking cigarettes per day: 20.0 Years smoked: 50 Smoking pack-years: 50.00 Smoking status: Current every day smoker Tobacco type: cigarettes Alcohol intake: current Drinks per week: 21 Alcohol use details: beer Substance use type: does not use Living arrangements: alone Spiritual care concerns: No Meds Home Medications and Allergies Home Medications ?Medication ?Instructions ?Recorded ?Confirmed ?Type cilostazol 100 mg tablet 100 mg PO BID 02/08/21 04/19/25 History multivitamin 1 tablet PO DAILY 02/08/21 04/19/25 History atorvastatin 10 mg tablet 10 mg PO DAILY 01/13/24 04/19/25 History clopidogrel 75 mg tablet 75 mg PO DAILY 01/13/24 04/19/25 History sulfasalazine 500 mg tablet 2,000 mg PO DAILY 01/13/24 04/19/25 History aspirin 81 mg tablet 81 mg PO DAILY 04/11/25 04/19/25 History Allergies Allergy/AdvReac Type Severity Reaction Status Date / Time No Known Allergies Allergy Verified 04/19/25 08:55 Vital Signs Vital Signs - 24 hr 04/19/25 08:59 Temperature 97.7 F Pulse Rate 66 Respiratory Rate 18 Blood Pressure 148/67 H Pulse Oximetry 98 Oxygen Delivery Room Air Exam Const: General: cooperative and healthy appearing Resp: Effort & Inspection: normal respiratory effort and able to speak in complete sentences Auscultation: clear to auscultation bilaterally Cardio: Rate: regular rate Rhythm: regular rhythm GI: Inspection: normal to inspection GI Palp: No No hepatosplenomegaly present Auscultation: normal bowel sounds Rectal Exam: deferred Skin: General skin exam: normal color Psych: Appearance: grossly normal Mental Status: mental status grossly normal Assessment and Plan Assessment and plan (1) History of colon resection: Code(s): Z90.49 - Acquired absence of other specified parts of digestive tract Status: Acute Assessment and Plan: The patient is deemed a good candidate for the procedure. Consent signed. Will proceed.
--- NOTE | 2025-04-19 10:44 | S_PTH ---
PATIENT: Bharat Hays LOC: [facility] U#:[id number] AGE/SX: 69/M ROOM: RE04/19/[address]: Marques Stover MD : 1955 BED: DIS: 04/19/2025 SPEC #: [id number] RECD: 04/19/25 11:53 STATUS: [facility] M REQ #: [id number] LYN: 04/19/25 10:[address]: Marques Stover DEPT: [facility] Surgical RECD BY: Lakeshia James ENTERED: 04/19/25 11:54 SP TYPE: Surgical OTHR DR: Adiel CabralesMD Tissues: A - Colon Polypectomy Procedures: Hematoxylin and Eosin Stain Gross and Microscopic Level 4
[2025-04-19 10:48] VITALS: BP 113/56; PULSE 63; RESP 16; O2SAT 100
[2025-04-19 10:58] VITALS: BP 106/54; PULSE 61; RESP 16; O2SAT 100
[2025-04-19 11:08] VITALS: BP 146/78; PULSE 77; RESP 15; O2SAT 100
--- NOTE | 2025-04-19 12:05 | SUR.PHASEII ---
Patient waiting on [facility] ride to be discharged.
== END 2025-04-19 12:05 | disposition home or self-care (01) ==
PROVIDERS: PCP Internal Medicine; Referring Provider Internal Medicine Gastroenterology; Visit Provider Internal Medicine Gastroenterology
PROC: 0DJD8ZZ Inspection of Lower Intestinal Tract, Via Natural or Artificial Opening Endoscopic (ICD-10-PCS; CPT 45378; principal; 2025-04-19 10:00)
DX: Z12.11 Encounter for screening for malignant neoplasm of colon (principal); D12.3 Benign neoplasm of transverse colon; K64.8 Other hemorrhoids; F17.210 Nicotine dependence, cigarettes, uncomplicated; Z79.02 Long term (current) use of antithrombotics/antiplatelets; Z79.82 Long term (current) use of aspirin; Z90.49 Acquired absence of other specified parts of digestive tract; Z98.0 Intestinal bypass and anastomosis status; Z87.19 Personal history of other diseases of the digestive system
CPT/HCPCS: 45385; 88305; J2003; J2704; J7120